=== PATIENT | female | born 1970 | race Caucasian/White ===

== ENCOUNTER 2021-08-22 21:11 | Inpatient (IN) | payer OTHER ==
[~2021-08-22] VITALS: Ht 167.6 cm; Wt 90.7 kg
[~2021-08-22 21:11] MED LIST: DELZICOL400 M1 PO; MEDROLPACK PO; ULTRACET PO
[2021-08-22] MEDS ORDERED: LEXAPRO20 MG PO (21:22)
[2021-08-22] MEDS ORDERED: ATIVAN2 M1 PO (21:23)
[2021-08-22] MEDS ORDERED: VISTARIL50 MG PO (21:23)
--- NOTE | 2021-08-22 21:25 | NUR ---
SE RECIBE PTE ALERTA Y ORIENTADA LA CUAL REFIERE TENER DOLOR ABDOMINA, NAUSEAS, SANGRADO RECTAL DESDE HACE 2 MUÑOZ.
--- NOTE | 2021-08-22 22:43 | NUR ---
SE LE REALIZA A PACIENTE LA GILL DE MUESTRAS, SE EDUCA A PACIENTE SOBRE DICHOS MEDICAMENTOS Y ESTA REFIERE ENTENDER. PACIENTE REUSA MEDICAMENTO YA QUE ESTA REFIERE QUE LE CAUSA MAS SANGRADO. SE NOITIFICA A GIANNI DE TURNO SOBRE EL MISMO.
--- NOTE | 2021-08-22 23:02 | NUR ---
PATIENT IS RECIEVED FROM PREVIOUS SHIFT ALERT, ORIENTED X3 AND IN STABLE CONDITIONS. PATIENT IS IN BED WITH RAILINGS UP AND IVF DRIPPING ACCORDINGLY. PATIENT HAS PENDING DOCTOR'S REEVALUATION.
--- NOTE | 2021-08-22 23:18 | NUR ---
SE ORIENTA PACIENTE SOBRE NARCOTICO ESTA INDICA REHUSAR TRATAMIENTO.
--- NOTE | 2021-08-23 03:31 | NUR ---
SE ADMINISTRAN MEDICAMENTOS ONUR ORDEN MEDICA. SE ENTREGA FRASCO DE FECAL LEUKOCYTE
--- NOTE | 2021-08-23 07:31 | NUR ---
PTE ALERTA Y ORIENTADA POR ELAINA ESFERAS CON BUEN PATRON RESPIRATORIO. TIENE CANALIZAICON PATENTE, JO ANN DE EDEMA Y ERITEMA. TIENE PENDIENTE CONSULTA CON
== END 2021-08-25 17:19 | disposition home or self-care (01) | DRG 392 ==
LOC: ER 21:11 → SURH 08-23 10:59 → SEC-K 08-23 10:59 → SURH 08-23 15:13
PROVIDERS: ADMIT Internal Medicine; ATTEND Internal Medicine
PROC: BW21YZZ Computerized Tomography (CT Scan) of Abdomen and Pelvis using Other Contrast (ICD-10-PCS; 2021-08-22)
PROC: 0DJD8ZZ Inspection of Lower Intestinal Tract, Via Natural or Artificial Opening Endoscopic (ICD-10-PCS; principal; 2021-08-24)
DX: K52.82 Eosinophilic colitis (principal); K62.5 Hemorrhage of anus and rectum; E86.0 Dehydration; M79.7 Fibromyalgia

== ENCOUNTER 2023-06-15 08:41 | Emergency (ER) | payer OTHER ==
[~2023-06-15] VITALS: Ht 157.5 cm; Wt 68.5 kg
[~2023-06-15 08:41] MED LIST changes: +ATIVAN2 M1 PO; +LEXAPRO20 MG PO; +VISTARIL50 MG PO
[2023-06-15] MEDS ORDERED: TOPROL XL25 M1 PO (08:56)
[2023-06-15] MEDS ORDERED: GRALISE600 MG PO (08:56)
[2023-06-15] MEDS ORDERED: TOPAMAX25 M1 PO (08:56)
[2023-06-15] MEDS ORDERED: XANAX1 MG PO (08:57)
[2023-06-15] MEDS ORDERED: PERCOCET 5-3251 EACH PO (12:02)
[2023-06-15] MEDS ORDERED: NORFLEX100MG PO (12:37)
== END 2023-06-15 13:04 | disposition home or self-care (01) ==
LOC: ER 08:42
DX: M54.9 Dorsalgia, unspecified (principal); Z88.6 Allergy status to analgesic agent; I10 Essential (primary) hypertension; M51.37 Other intervertebral disc degeneration, lumbosacral region
CPT/HCPCS: 96372; 99284; J2360; J3490